=== PATIENT | female | born 1970 | race Caucasian/White ===

== ENCOUNTER 2018-02-22 21:02 | Outpatient (CLI) | payer SELFPAY | END 2018-02-23 06:55 | disposition home or self-care (01) | LOC: SLEEP 21:02 | PROVIDERS: ATTEND Family Medicine | DX: G47.10 Hypersomnia, unspecified (principal); G47.36 Sleep related hypoventilation in conditions classified elsewhere; R06.83 Snoring; G47.61 Periodic limb movement disorder; I10 Essential (primary) hypertension | CPT/HCPCS: 95811 ==

== ENCOUNTER 2018-06-11 14:20 | Outpatient (CLI) | payer OTHER ==
[~2018-06-11] VITALS: Ht 149.9 cm; Wt 67.1 kg
[2018-06-11] MEDS ORDERED: ESCI20TA PO (14:49)
[2018-06-11] MEDS ORDERED: MULT-884 PO (14:49)
[2018-06-11] MEDS ORDERED: LISI1TAB8 PO (14:49)
[2018-06-11] MEDS ORDERED: AMLO5TAB7 PO (14:49)
[2018-06-11] MEDS ORDERED: METO100T12 PO (14:49)
[2018-06-11] MEDS ORDERED: PRAM0.252 PO (14:49)
[2018-06-11] MEDS ORDERED: FERR160T6 PO (14:49)
== END 2018-06-11 14:50 | disposition home or self-care (01) ==
LOC: PREOP 14:20
PROVIDERS: ATTEND Surgery
DX: Z01.818 Encounter for other preprocedural examination (principal)

== ENCOUNTER 2018-06-12 09:55 | Day surgery (SDC) | payer OTHER ==
[~2018-06-12] VITALS: Ht 149.9 cm; Wt 67.1 kg
[~2018-06-12 09:55] MED LIST: AMLO5TAB7 PO; ESCI20TA PO; FERR160T6 PO; LISI1TAB8 PO; METO100T12 PO; MULT-884 PO; PRAM0.252 PO
[2018-06-12] MEDS ORDERED: LACTATED RINGERS 1,000 ML IV ONE (10:20)
[2018-06-12] MEDS ORDERED: LACTATED RINGERS 1,000 ML IV STA (10:26)
[2018-06-12] MEDS ORDERED: HURRICAINE EXT TUBE (BENZOCAINE) XX PRN (10:30)
[2018-06-12 10:42] VITALS: BP 112/95
[2018-06-12] MEDS ORDERED: proPOfol 200 MG/20 ML (DIPRIVAN) VIAL IV ONE (10:45)
[2018-06-12] MEDS ORDERED: MIDAZOLAM 2 MG/2 ML (VERSED) VIAL ONE (10:46)
--- NOTE | 2018-06-12 10:49 | Progress Note-Pre Operative ---
Pre-Operative Progress Note H&P Reviewed The H&P was reviewed, patient examined and no changes noted. Date Seen by Provider: Jun 12, 2018 Time Seen by Provider: 10:49 Date H&P Reviewed: Jun 12, 2018 Time H&P Reviewed: 10:49 Pre-Operative Diagnosis: change in bowel habits, llq abdominal pain LONDON PETERSON DO Jun 12, 2018 10:49
[2018-06-12] MEDS ORDERED: fentaNYL INJECTION 100 MCG/2 ML AMP ONE (11:06)
--- NOTE | 2018-06-12 11:23 | Progress Note-Post Operative ---
Post-Operative Progess Note Surgeon (s)/Miscellaneous Machine Operator (s) Surgeon LONDON PETERSON DO Miscellaneous Machine Operator: na Pre-Operative Diagnosis change in bowel habits, llq abdominal pain Post-Operative Diagnosis sigmoid polyp, diverticulosis Procedure & Operative Findings Date of Procedure 06/12/18 Procedure Performed/Findings colonoscopy with hot bx polypectomy Anesthesia Type per mda Estimated Blood Loss Estimated blood loss (mL): none Specimens/Packing Specimens Removed sigmoid polyp LONDON PETERSON DO Jun 12, 2018 11:23
--- NOTE | 2018-06-12 11:25 | Discharge Inst-Simple/Standard ---
Discharge Inst-Standard Patient Instructions/Follow Up Plan of Care/Instructions/FU: 2 weeks Pacheco Take citracil daily as instructions state. Activity as Tolerated: Yes Discharge Diet: Regular Diet LONDON PETERSON DO Jun 12, 2018 11:25
[2018-06-12 11:40] VITALS: BP 112/95
[2018-06-12 12:05] VITALS: BP 132/94
[2018-06-12 12:13] VITALS: BP 132/94
--- OUTSIDE RECORDS SUMMARY | 2018-06-12 13:42 | XMS REPORT ---
Author Author JEAN MARIE JUNIOR [facility] Address [address] [place] [address] Care Team Providers Care Hairspring Ii Inspector Name Role Phone SAULOCARLOSMAXIME JEAN MARIE Unavailable PROBLEMS Type Condition ICD9-CM Code [id number] Code Onset Dates Condition Status SNOMED Code Problem Moderate episode of recurrent major depressive disorder F33.1 Active 682174975 Problem Sleep disturbance G47.9 Active 18796136 Problem Essential hypertension I10 Active 70933596 Problem Severe sleep apnea G47.30 Active 93339506 Problem Restless leg syndrome G25.81 Active 85346300 Problem Tobacco abuse Z72.0 Active 752490308 Problem Chronic diarrhea K52.9 Active 011982431 Problem Environmental and seasonal allergies J30.89 Active 799176933 Problem Overweight (BMI 25.0-29.9) E66.3 Active 031846912 Problem Chronic GERD K21.9 Active 048178317 ALLERGIES No Known Allergies ENCOUNTERS Encounter Location Date Diagnosis [facility] [address] [facility] [id number] [place] [id number] Jun, [facility] [address] [facility] [id number] [place] [phone] May, [facility] [facility] [id number] [place] [id number] May, [facility] [address] [facility] [id number] [place] [id number] Apr, Essential hypertension I10 ; Restless leg syndrome G25.81 ; LLQ abdominal pain R10.32 ; Moderate episode of recurrent major depressive disorder F33.1 and Encounter for immunization Z23 [facility] [address] [facility] [facility] [id number] [place] [id number] Apr, Essential hypertension I10 [facility] RETA [address] [id number] [place] [address] Apr Essential hypertension I10 [facility] [place] [address] [id number] [place] [address] Mar, Women's annual routine gynecological examination Z01.419 [facility] [address] [facility] [id number] [place] [address] Mar, [facility] [place] [address] [id number] [place] [address] Feb, Women's annual routine gynecological examination Z01.419 ; Overweight ( BMI 25.0-29.9) E66.3 and Tobacco abuse Z72.0 [facility] [place] [id number] [place] [address] Jan, Essential hypertension I10 ; Chronic GERD K21.9 and Sleep disturbance G47.9 [facility] [address] [facility] [id number] [place] [address] Nov, Dental examination Z01.20 [facility] [place] [id number] [place] [id number] Oct, Essential hypertension I10 ; Sleep disturbance G47.9 and Moderate episode of recurrent major depressive disorder F33.1 [facility] [place] [address] [id number] [place] [address] Sep Essential hypertension I10 [facility] [address] [id number] [place] [address] Jul Screening breast examination Z12.31 [facility] [place] [id number] [place], [place] [id number] Jun, [facility] [place] [id number] [place] [address] Jun, [facility] [address] [facility] [id number][place] [address] Jun, Environmental and seasonal allergies J30.89 [facility] [place] [id number] [place] [address] Jun, Environmental and seasonal allergies J30.89 ; Chronic diarrhea K52.9 and Essential hypertension I10 [facility] [place] [address] [place] [id number] May, Acute non-recurrent sinusitis, unspecified location J01.90 ; Essential hypertension I10 ; Sleep disturbance G47.9 and Tobacco abuse Z72.0 [facility] [address] [id number] [place] [address] Apr Acute seasonal allergic rhinitis, unspecified trigger J30.2 [facility] Nanoleaf [address] [id number] [place] [address] Apr Acute nasopharyngitis J00 and Essential hypertension I10 [facility] FriendE [id number] [place] [address] Mar Essential hypertension I10 and Acute seasonal allergic rhinitis, unspecified trigger J30.2 [facility] EvocalizeE [id number] [place] [address] Jan Essential hypertension I10 ; Moderate episode of recurrent major depressive disorder F33.1 and Pain in right leg M79.604 [facility] Friend[facility] [id number] [place] [address] December Acute nasopharyngitis J00 IMMUNIZATIONS Vaccine Route Administration Date Status FLULAVAL QUAD 0.5ML (6 MO & UP) 2018 IM Intramuscular May 03, 2018 Administered SOCIAL HISTORY Never Assessed REASON FOR VISIT CHM- 3 month f/u Blood Pressure , Pt is concerned about bowel movements and multiple loose stools, has never had colonoscopy Johnie MARTINEZ PLAN OF CARE Activity Details Follow Up 4-6 weeks Reason:HTN, Restless Leg VITAL SIGNS Height 59 in 2018-05-03 Weight 150.0 lbs 2018-05-03 Heart Rate 68 bpm 2018-05-03 Respiratory Rate 18 2018-05-03 BMI 30.29 kg/m2 2018-05-03 Blood pressure systolic 160 mmHg 2018-05-03 Blood pressure diastolic 98 mmHg 2018-05-03 MEDICATIONS Medication Instructions Dosage Frequency Start Date End Date Duration Status Lexapro 20 mg Orally Once a day 0.5 tablet 24h Apr, 60 days Active Lisinopril 40 mg Orally Once a day 1 tablet 24h Apr, 30 day(s) Active Lisinopril-Hydrochlorothiazide 20-12.5 MG Orally Once a day in the morning 2 tablets Apr, 60 days Active Pramipexole Dihydrochloride 0.25 MG Orally Once a day 1 tablet before bedtime 24h Apr, 30 day(s) Active Esomeprazole Magnesium 20 mg Orally Once a day 1 capsule 24h Jan, 90 days Active Amlodipine Besylate 10 mg Orally Once a day 1 tablet 24h Apr, 30 day(s) Active Metoprolol Tartrate 100 mg Orally Twice a day 1 tablet with food 12h Jan Active RESULTS No Results PROCEDURES Procedure Date Ordered Result Body Site FLULAVAL QUAD 0.5ML (6 MO AND UP) 2017May 03, 2018 SINGLE IMMUNIZATION ADMIN May 03, 2018 COMPLETE CBC W/AUTO DIFF WBC May 03, 2018 COMPREHEN METABOLIC PANEL May 03, 2018 MICROALBUMIN, SEMIQUANT May 03, 2018 VENIPUNCT, ROUTINE* May 03, 2018 IRON BINDING TEST May 03, 2018 LIPID PANEL May 03, 2018 ASSAY OF FERRITIN May 03, 2018 ASSAY OF IRON May 03, 2018 INSTRUCTIONS MEDICATIONS ADMINISTERED No Known Medications MEDICAL (GENERAL) HISTORY Type Description Date Medical History hypertension Medical History seasonal allergies Medical History depression Medical History IBS Surgical History Breast implants Surgical History tubal ligation Hospitalization History child
--- OUTSIDE RECORDS SUMMARY | 2018-06-12 13:42 | XMS REPORT ---
Author Author JEAN MARIE JUNIOR [facility] Address [address] [place] [address] Care Team Providers Care Trim Mechanic Name Role Phone SAULOCARLOSMAXIME JEAN MARIE Unavailable PROBLEMS Type Condition ICD9-CM Code [id number] Code Onset Dates Condition Status SNOMED Code Problem Moderate episode of recurrent major depressive disorder F33.1 Active 421904039 Problem Sleep disturbance G47.9 Active 53402715 Problem Essential hypertension I10 Active 47541054 Problem Severe sleep apnea G47.30 Active 34257625 Problem Restless leg syndrome G25.81 Active 81012871 Problem Tobacco abuse Z72.0 Active 591704647 Problem Chronic diarrhea K52.9 Active 720787719 Problem Environmental and seasonal allergies J30.89 Active 951841234 Problem Overweight (BMI 25.0-29.9) E66.3 Active 447141204 Problem Chronic GERD K21.9 Active 716209419 ALLERGIES No Information ENCOUNTERS Encounter Location Date Diagnosis [facility] [address] [facility] [id number][place] [phone] Jun, [facility] [address] [facility] [id number][place] [phone] May, [facility] [facility] [id number] [place] [phone] May, [facility] [address] [facility] [id number][place] [id number] Apr, Essential hypertension I10 ; Restless leg syndrome G25.81 ; LLQ abdominal pain R10.32 ; Moderate episode of recurrent major depressive disorder F33.1 and Encounter for immunization Z23 [facility] [address] [facility] [id number][place] [id number] Apr, Essential hypertension I10 [facility] RETA [address] [id number] [place] [address] Apr Essential hypertension I10 [facility] [place] [address] [id number][place] [id number] Mar, Women's annual routine gynecological examination Z01.419 [facility] [address] [facility] [id number] [place] [phone] Mar, [facility] [place] [address] [id number], [place] [address] Feb, Women's annual routine gynecological examination Z01.419 ; Overweight ( BMI 25.0-29.9) E66.3 and Tobacco abuse Z72.0 [facility] [place] [id number], [place] [address] Jan, Essential hypertension I10 ; Chronic GERD K21.9 and Sleep disturbance G47.9 [facility] [address] [id number] [place] [id number] Nov, Dental examination Z01.20 [facility] [place] [id number], [place] [address] Oct, Essential hypertension I10 ; Sleep disturbance G47.9 and Moderate episode of recurrent major depressive disorder F33.1 [facility] [address] [id number] [place] [address] Sep Essential hypertension I10 [facility] [address] [id number] [place] [address] Jul Screening breast examination Z12.31 [facility] [place] [id number], [place] [id number] Jun, [facility] [place] [address] [id number], [place] [address] Jun, [facility] [address] [facility] [id number] [address] Jun, Environmental and seasonal allergies J30.89 [facility] [place] [id number], [place] [address] Jun, Environmental and seasonal allergies J30.89 ; Chronic diarrhea K52.9 and Essential hypertension I10 [facility] [place] [id number] [place] [id number] May, Acute non-recurrent sinusitis, unspecified location J01.90 ; Essential hypertension I10 ; Sleep disturbance G47.9 and Tobacco abuse Z72.0 [facility] Libboo [address] [id number] [place] [address] Apr Acute seasonal allergic rhinitis, unspecified trigger J30.2 [facility] [address] [id number] [place] [address] Apr Acute nasopharyngitis J00 and Essential hypertension I10 [facility] [address] [id number] [place] [address] Mar Essential hypertension I10 and Acute seasonal allergic rhinitis, unspecified trigger J30.2 [facility] [address] [id number] [place] [address] Jan Essential hypertension I10 ; Moderate episode of recurrent major depressive disorder F33.1 and Pain in right leg M79.604 [facility] [address] [id number] [place] [address] December Acute nasopharyngitis J00 IMMUNIZATIONS No Known Immunizations SOCIAL HISTORY Never Assessed REASON FOR VISIT lab letter PLAN OF CARE VITAL SIGNS MEDICATIONS Unknown Medications RESULTS No Results PROCEDURES No Known procedures INSTRUCTIONS MEDICATIONS ADMINISTERED No Known Medications MEDICAL (GENERAL) HISTORY Type Description Date Medical History hypertension Medical History seasonal allergies Medical History depression Medical History IBS Surgical History Breast implants Surgical History tubal ligation Hospitalization History child
--- OUTSIDE RECORDS SUMMARY | 2018-06-12 13:42 | XMS REPORT ---
Author Author JEAN MARIE JUNIOR [facility] Address [address] [place] [address] Care Team Providers Care Typists Supervisor Name Role Phone SAULOCARLOSMAXIME JEAN MARIE Unavailable PROBLEMS Type Condition ICD9-CM Code TIA91-AS Code Onset Dates Condition Status SNOMED Code Problem Moderate episode of recurrent major depressive disorder F33.1 Active 371327800 Problem Sleep disturbance G47.9 Active 54764121 Problem Essential hypertension I10 Active 37229089 Problem Severe sleep apnea G47.30 Active 25092730 Problem Restless leg syndrome G25.81 Active 92528188 Problem Tobacco abuse Z72.0 Active 542558851 Problem Chronic diarrhea K52.9 Active 743365118 Problem Environmental and seasonal allergies J30.89 Active 970964793 Problem Overweight (BMI 25.0-29.9) E66.3 Active 227471405 Problem Chronic GERD K21.9 Active 048984199 ALLERGIES No Information ENCOUNTERS Encounter Location Date Diagnosis [facility] [address] [facility] [id number], [place] [phone] Jun, [facility] [address] [facility] [id number], [place] [phone] May, [facility] [address] [facility] [id number], [place] [id number] May, [facility] [address] [facility] [id number], [place] [id number] Apr, Essential hypertension I10 ; Restless leg syndrome G25.81 ; LLQ abdominal pain R10.32 ; Moderate episode of recurrent major depressive disorder F33.1 and Encounter for immunization Z23 [facility] [address] [facility] [id number], [place] [phone] Apr, Essential hypertension I10 [facility] [address] [id number] [place] [address] Apr Essential hypertension I10 [facility] [place] [address] [id number], [place] [id number] Mar, Women's annual routine gynecological examination Z01.419 [facility] [address] [facility] [address] [id number], [place] [id number] Mar, [facility] [place] [address] [id number], [place] [address] Feb, Women's annual routine gynecological examination Z01.419 ; Overweight ( BMI 25.0-29.9) E66.3 and Tobacco abuse Z72.0 [facility] [place] [id number], [place] [address] Jan, Essential hypertension I10 ; Chronic GERD K21.9 and Sleep disturbance G47.9 [facility] [address] [facility] [address] [id number], [place] [id number] Nov, Dental examination Z01.20 [facility] [place] [id number], [place] [address] Oct, Essential hypertension I10 ; Sleep disturbance G47.9 and Moderate episode of recurrent major depressive disorder F33.1 [facility] [address] [id number] [place] [address] Sep Essential hypertension I10 [facility] [address] [id number] [place] [address] Jul Screening breast examination Z12.31 [facility] [place] [id number], [place] [id number] Jun, [facility] [place] [address] [id number], [place] [id number] Jun, [facility] [address] [facility] [id number], [place] [address] Jun, Environmental and seasonal allergies J30.89 [facility] [place] [id number], [place] [address] Jun, Environmental and seasonal allergies J30.89 ; Chronic diarrhea K52.9 and Essential hypertension I10 [facility] [place] [id number] [place] [address] May, Acute non-recurrent sinusitis, unspecified location J01.90 ; Essential hypertension I10 ; Sleep disturbance G47.9 and Tobacco abuse Z72.0 [facility] Curiyo [address] [id number] [place] [address] Apr Acute seasonal allergic rhinitis, unspecified trigger J30.2 [facility] [address] [id number] [place] [address] Apr Acute nasopharyngitis J00 and Essential hypertension I10 [facility] [address] [id number] [place] [address] Mar Essential hypertension I10 and Acute seasonal allergic rhinitis, unspecified trigger J30.2 [facility] [address] [id number] [place] [address] Jan Essential hypertension I10 ; Moderate episode of recurrent major depressive disorder F33.1 and Pain in right leg M79.604 [facility] Curiyo [address] [id number] [place] [address] December Acute nasopharyngitis J00 IMMUNIZATIONS No Known Immunizations SOCIAL HISTORY Never Assessed REASON FOR VISIT Colonoscopy Order PLAN OF CARE VITAL SIGNS MEDICATIONS Unknown Medications RESULTS No Results PROCEDURES No Known procedures INSTRUCTIONS MEDICATIONS ADMINISTERED No Known Medications MEDICAL (GENERAL) HISTORY Type Description Date Medical History hypertension Medical History seasonal allergies Medical History depression Medical History IBS Surgical History Breast implants Surgical History tubal ligation Hospitalization History child
--- OUTSIDE RECORDS SUMMARY | 2018-06-12 13:43 | XMS REPORT ---
Author Author JEAN MARIE JUNIOR [facility] Address [address] [place] [address] Care Team Providers Care Industrial Eng Name Role Phone SANDI JEAN MARIE Unavailable PROBLEMS Type Condition ICD9-CM Code MVG83-DM Code Onset Dates Condition Status SNOMED Code Problem Severe sleep apnea G47.30 Active 30720047 Problem Essential hypertension I10 Active 70860498 Problem Moderate episode of recurrent major depressive disorder F33.1 Active 741136898 Problem Tobacco abuse Z72.0 Active 602595580 Problem Overweight (BMI 25.0-29.9) E66.3 Active 768496284 Problem Environmental and seasonal allergies J30.89 Active 217025883 Problem Sleep disturbance G47.9 Active 99023240 Problem Chronic GERD K21.9 Active 508761210 Problem Chronic diarrhea K52.9 Active 093335257 ALLERGIES No Information ENCOUNTERS Encounter Location Date Diagnosis [facility] [id number] [place] [id number] Apr, [facility] [address] [facility] [id number][place] [phone] Apr, Essential hypertension I10 [address] [address] [id number] [place] [address] Apr Essential hypertension I10 [facility] [address] [facility] [id number], [place] [id number] Mar, Women's annual routine gynecological examination Z01.419 [facility] [address] [facility] [id number] [place] [address] Mar, [facility] [address] [facility] [id number], [place] [id number] Feb, Women's annual routine gynecological examination Z01.419 ; Overweight ( BMI 25.0-29.9) E66.3 and Tobacco abuse Z72.0 [facility] [address] [facility] [id number], [place] [id number] Jan, Essential hypertension I10 ; Chronic GERD K21.9 and Sleep disturbance G47.[address] [facility] [address] [id number] [place] [address] Nov, Dental examination Z01.20 [facility] [id number], [place] [id number] 15 Oct, 2017 Essential hypertension I10 ; Sleep disturbance G47.9 and Moderate episode of recurrent major depressive disorder F33.1 [facility] [address] [address] [id number] [place] [address] Sep Essential hypertension I10 [facility] [place] [address] [id number] [place] [address] Jul Screening breast examination Z12.[address]00565100[place], [place] [id number] Jun, [address]00565100[place], [place] [address] Jun, [facility] [address] [id number], [place] [address] Jun, Environmental and seasonal allergies J30.89 [address]00565100[place], [place] [address] Jun, Environmental and seasonal allergies J30.89 ; Chronic diarrhea K52.9 and Essential hypertension I10 [facility] [address]00565100[place], [place] [address] 05 May, 2017 Acute non-recurrent sinusitis, unspecified location J01.90 ; Essential hypertension I10 ; Sleep disturbance G47.9 and Tobacco abuse Z72.0 [facility] [address] [address] [id number] [place] [address] 28 Apr Acute seasonal allergic rhinitis, unspecified trigger J30.2 [facility] [place] [address] [id number] [place] [address] 14 Apr Acute nasopharyngitis J00 and Essential hypertension I10 [facility] [place] [address] [id number] [place] [address] Mar Essential hypertension I10 and Acute seasonal allergic rhinitis, unspecified trigger J30.2 [facility] [address] [id number] [place] [address] Jan Essential hypertension I10 ; Moderate episode of recurrent major depressive disorder F33.1 and Pain in right leg M79.604 [facility] [address] [id number] [place] [address] December Acute nasopharyngitis J00 IMMUNIZATIONS No Known Immunizations SOCIAL HISTORY Never Assessed REASON FOR VISIT updated history PLAN OF CARE VITAL SIGNS MEDICATIONS Unknown Medications RESULTS No Results PROCEDURES No Known procedures INSTRUCTIONS MEDICATIONS ADMINISTERED No Known Medications MEDICAL (GENERAL) HISTORY Type Description Date Medical History hypertension Medical History seasonal allergies Medical History depression Medical History IBS Surgical History Breast implants Surgical History tubal ligation Hospitalization History child
--- OUTSIDE RECORDS SUMMARY | 2018-06-12 13:43 | XMS REPORT ---
Author Author JEAN MARIE JUNIOR [facility] [place] Address [address] [place] [address] Care Team Providers Care Supervisor Mechanic Boilermaking Name Role Phone SANDI JEAN MARIE Unavailable PROBLEMS Type Condition ICD9-CM Code [id number] Code Onset Dates Condition Status SNOMED Code Problem Chronic GERD K21.9 Active 728431775 Problem Environmental and seasonal allergies J30.89 Active 779550778 Problem Essential hypertension I10 Active 87106818 Problem Moderate episode of recurrent major depressive disorder F33.1 Active 111659335 Problem Chronic diarrhea K52.9 Active 925458148 Problem Sleep disturbance G47.9 Active 98881512 ALLERGIES No Information ENCOUNTERS Encounter Location Date Diagnosis [facility] [address] [id number] [id number] Feb, [facility] [address] [facility] [id number][place] [id number] Feb, [facility] [address] [address] Jan, Essential hypertension I10 ; Chronic GERD K21.9 and Sleep disturbance G47.9 [facility] [address] [address] [id number], [place] [phone] Nov, Dental examination Z01.20 [facility] [place] [address] [id number][place] [id number] Oct, Essential hypertension I10 ; Sleep disturbance G47.9 and Moderate episode of recurrent major depressive disorder F33.1 [facility] [address] [id number] [place] [address] Sep Essential hypertension I10 [facility] [place] [address] [id number] [place] [address] Jul Screening breast examination Z12.31 [facility] [address] [id number] [place] [id number] Jun, [facility] [address] [facility] [id number][place] [id number] Jun, [facility] [place] [address] [facility] [id number] [place] [address] Jun, Environmental and seasonal allergies J30.89 [facility] [address] [facility] [id number][place] [address] Jun, Environmental and seasonal allergies J30.89 ; Chronic diarrhea K52.9 and Essential hypertension I10 [facility] [address] [facility] [id number][place] [id number] May, Acute non-recurrent sinusitis, unspecified location J01.90 ; Essential hypertension I10 ; Sleep disturbance G47.9 and Tobacco abuse Z72.0 [facility] [employer] [address] [id number] [place] [address] Apr Acute seasonal allergic rhinitis, unspecified trigger J30.2 [facility] [employer] [address] [id number] [place] [address] Apr Acute nasopharyngitis J00 and Essential hypertension I10 [facility] [employer] [address] [id number] [place] [address] Mar Essential hypertension I10 and Acute seasonal allergic rhinitis, unspecified trigger J30.2 [facility] [address] [id number] [place] [address] Jan Essential hypertension I10 ; Moderate episode of recurrent major depressive disorder F33.1 and Pain in right leg M79.604 [facility] [employer] [address] [id number] [place] [address] December Acute nasopharyngitis J00 IMMUNIZATIONS No Known Immunizations SOCIAL HISTORY Never Assessed REASON FOR VISIT Refill request PLAN OF CARE VITAL SIGNS MEDICATIONS Medication Instructions Dosage Frequency Start Date End Date Duration Status Lisinopril 20 mg Orally Once a day 1 tablet 24h Mar, 30 days Active RESULTS No Results PROCEDURES No Known procedures INSTRUCTIONS MEDICATIONS ADMINISTERED No Known Medications MEDICAL (GENERAL) HISTORY Type Description Date Medical History hypertension Medical History seasonal allergies Medical History depression Medical History IBS Surgical History Breast implants Surgical History tubal ligation Hospitalization History child
--- OUTSIDE RECORDS SUMMARY | 2018-06-12 13:43 | XMS REPORT ---
Author Author JEAN MARIE JUNIOR [facility] Address [address] [place] [address] Care Team Providers Care Mechanic Insulator Name Role Phone JEAN MARIE JUNIOR Unavailable PROBLEMS Type Condition ICD9-CM Code [id number] Code Onset Dates Condition Status SNOMED Code Problem Severe sleep apnea G47.30 Active 30137056 Problem Essential hypertension I10 Active 73677596 Problem Moderate episode of recurrent major depressive disorder F33.1 Active 815529541 Problem Tobacco abuse Z72.0 Active 408815559 Problem Overweight (BMI 25.0-29.9) E66.3 Active 182512894 Problem Environmental and seasonal allergies J30.89 Active 801825085 Problem Sleep disturbance G47.9 Active 56463390 Problem Chronic GERD K21.9 Active 096508214 Problem Chronic diarrhea K52.9 Active 121120689 ALLERGIES No Known Allergies ENCOUNTERS Encounter Location Date Diagnosis [facility] [id number] [place] [id number] Apr, [facility] [address] [facility] [id number] [place] [phone] Apr, Essential hypertension I10 [place] [address] [id number] [place] [address] Apr Essential hypertension I10 [facility] [address] [facility] [id number] [place] [id number] Mar, Women's annual routine gynecological examination Z01.419 [facility] [address] [facility] [address] [id number] [id number] Mar, [facility] [address] [facility] [id number] [place] [address] Feb, Women's annual routine gynecological examination Z01.419 ; Overweight ( BMI 25.0-29.9) E66.3 and Tobacco abuse Z72.0 [facility] [address] [facility] [id number] [place] [id number] Jan, Essential hypertension I10 ; Chronic GERD K21.9 and Sleep disturbance G47.[address] [facility] [address] [id number] [place] [phone] Nov, Dental examination Z01.20 [facility] [address]00565100[place] [id number] 15 Oct, 2017 Essential hypertension I10 ; Sleep disturbance G47.9 and Moderate episode of recurrent major depressive disorder F33.[address] [facility] M[place]FF[facility] [address] [id number] [place] [address] Sep Essential hypertension I10 [facility] [address] [id number] [place] [address] Jul Screening breast examination Z12.31 [address]00565100[place] [id number] Jun, [address]00565100[place] [id number] Jun, [facility] [address] [place] [id number] [address] Jun, Environmental and seasonal allergies J30.89 [address]00565100[place] [address] Jun, Environmental and seasonal allergies J30.89 ; Chronic diarrhea K52.9 and Essential hypertension I10 [address]00565100[place] [id number] 05 May, 2017 Acute non-recurrent sinusitis, unspecified location J01.90 ; Essential hypertension I10 ; Sleep disturbance G47.9 and Tobacco abuse Z72.[address] [facility] M[place]FFIE [address] [id number] [place] [address] 28 Apr Acute seasonal allergic rhinitis, unspecified trigger J30.2 [facility] M[facility]FF[facility] [address] [id number] [place] [address] 14 Apr Acute nasopharyngitis J00 and Essential hypertension I10 [facility] M[place]FF[place] [address] [id number] [place] [address] Mar Essential hypertension I10 and Acute seasonal allergic rhinitis, unspecified trigger J30.2 [facility] [address] [id number] [place] [address] Jan Essential hypertension I10 ; Moderate episode of recurrent major depressive disorder F33.1 and Pain in right leg M79.604 [facility] [address] [id number] [place] [address] December Acute nasopharyngitis J00 IMMUNIZATIONS No Known Immunizations SOCIAL HISTORY Never Assessed REASON FOR VISIT Well Woman Exam Jaime RN PLAN OF CARE Activity Details Follow Up 1 Year Reason: VITAL SIGNS Height 59 in 2018-02-27 Weight 147.6 lbs 2018-02-27 Temperature 97.4 degrees Fahrenheit 2018-02-27 Heart Rate 62 bpm 2018-02-27 Respiratory Rate 18 2018-02-27 BMI 29.81 kg/m2 2018-02-27 Blood pressure systolic 122 mmHg 2018-02-27 Blood pressure diastolic 68 mmHg 2018-02-27 MEDICATIONS Medication Instructions Dosage Frequency Start Date End Date Duration Status Dexedrine Not-Taking Enalapril Maleate 20 mg Orally Once a day 1 tablet 24h Jan, 90 days Active Lexapro 20 mg Orally Once a day 1/2 tablet 24h 180 days Active Esomeprazole Magnesium 20 mg Orally Once a day 1 capsule 24h Jan, 90 days Active Metoprolol Tartrate 100 mg Orally Twice a day 1 tablet with food 12h Jan 90 days Active RESULTS No Results PROCEDURES Procedure Date Ordered Result Body Site SPECIMEN HANDLING February 27, 2018 CULTURE, BACTERIA, OTHER February 27, 2018 TRICHOMONAS ASSAY W/OPTIC February 27, 2018 No Charge February 27, 2018 Bacterial Vaginosis In House February 27, 2018 INSTRUCTIONS MEDICATIONS ADMINISTERED No Known Medications MEDICAL (GENERAL) HISTORY Type Description Date Medical History hypertension Medical History seasonal allergies Medical History depression Medical History IBS Surgical History Breast implants Surgical History tubal ligation Hospitalization History child
--- OUTSIDE RECORDS SUMMARY | 2018-06-12 13:43 | XMS REPORT ---
Author Author JEAN MARIE JUNIOR [facility] Address [address] [place] [address] Care Team Providers Care Phone Engineer Name Role Phone SANDI JEAN MARIE Unavailable PROBLEMS Type Condition ICD9-CM Code [id number] Code Onset Dates Condition Status SNOMED Code Problem Severe sleep apnea G47.30 Active 83446130 Problem Essential hypertension I10 Active 78987479 Problem Moderate episode of recurrent major depressive disorder F33.1 Active 620380365 Problem Tobacco abuse Z72.0 Active 791125670 Problem Overweight (BMI 25.0-29.9) E66.3 Active 105927315 Problem Environmental and seasonal allergies J30.89 Active 707778358 Problem Sleep disturbance G47.9 Active 38883631 Problem Chronic GERD K21.9 Active 531353760 Problem Chronic diarrhea K52.9 Active 344870065 ALLERGIES No Information ENCOUNTERS Encounter Location Date Diagnosis [facility] [id number] [place] [phone] Apr, [facility] [address] [facility] [id number], [place] [id number] Apr, Essential hypertension I10 [place] [address] [id number] [place] [address] Apr Essential hypertension I10 [facility] [address] [facility] [id number], [place] [id number] Mar, Women's annual routine gynecological examination Z01.419 [facility] [place] [address] [facility] [id number] [place] [id number] Mar, [facility] [address] [facility] [id number], [place] [id number] Feb, Women's annual routine gynecological examination Z01.419 ; Overweight ( BMI 25.0-29.9) E66.3 and Tobacco abuse Z72.0 [facility] [address] [facility] [id number], [place] [id number] Jan, Essential hypertension I10 ; Chronic GERD K21.9 and Sleep disturbance G47.9 [facility] [address] [id number] [place] [id number] Nov, Dental examination Z01.20 [facility] [id number], [place] [id number] 15 Oct, 2017 Essential hypertension I10 ; Sleep disturbance G47.9 and Moderate episode of recurrent major depressive disorder F33.1 [facility] [address] [id number] [place] [address] Sep Essential hypertension I10 [facility] M[facility] [address] [id number] [place] [address] Jul Screening breast examination Z12.31 [address]00565100[place], [place] [id number] Jun, [address]00565100[place], [place] [id number] Jun, [facility] [address] [id number], [place] [address] Jun, Environmental and seasonal allergies J30.89 [address]65100[place], [place] [id number] Jun, Environmental and seasonal allergies J30.89 ; Chronic diarrhea K52.9 and Essential hypertension I10 [facility] [address]00565100[place], [place] [id number] 05 May, 2017 Acute non-recurrent sinusitis, unspecified location J01.90 ; Essential hypertension I10 ; Sleep disturbance G47.9 and Tobacco abuse Z72.0 [facility] [address] [id number] [place] [address] 28 Apr Acute seasonal allergic rhinitis, unspecified trigger J30.2 [facility] [address] [id number] [place] [address] 14 Apr Acute nasopharyngitis J00 and Essential hypertension I10 [facility] [address] [address] [id number] [place] [address] Mar Essential hypertension I10 and Acute seasonal allergic rhinitis, unspecified trigger J30.2 [facility] [address] [id number] [place] [address] Jan Essential hypertension I10 ; Moderate episode of recurrent major depressive disorder F33.1 and Pain in right leg M79.604 [facility] [address] [id number] [place] [address] December Acute nasopharyngitis J00 IMMUNIZATIONS No Known Immunizations SOCIAL HISTORY Never Assessed REASON FOR VISIT change in mammo order PLAN OF CARE Activity Details Pending Test Mammogram Dx, Bilateral VITAL SIGNS MEDICATIONS Unknown Medications RESULTS No Results PROCEDURES No Known procedures INSTRUCTIONS MEDICATIONS ADMINISTERED No Known Medications MEDICAL (GENERAL) HISTORY Type Description Date Medical History hypertension Medical History seasonal allergies Medical History depression Medical History IBS Surgical History Breast implants Surgical History tubal ligation Hospitalization History child
--- OUTSIDE RECORDS SUMMARY | 2018-06-12 13:43 | XMS REPORT ---
Author Author JEAN MARIE JUNIOR [facility] Address [address] [place] [address] Care Team Providers Care Tick Inspector Name Role Phone JEAN MARIE JUNIOR Unavailable PROBLEMS Type Condition ICD9-CM Code VPQ38-RQ Code Onset Dates Condition Status SNOMED Code Problem Moderate episode of recurrent major depressive disorder F33.1 Active 872744938 Problem Sleep disturbance G47.9 Active 53111594 Problem Essential hypertension I10 Active 55845312 Problem Women's annual routine gynecological examination Z01.419 Active 833247665 Problem Overweight (BMI 25.0-29.9) E66.3 Active 445990094 Problem Environmental and seasonal allergies J30.89 Active 671458067 Problem Chronic diarrhea K52.9 Active 125931114 Problem Tobacco abuse Z72.0 Active 281990984 Problem Chronic GERD K21.9 Active 338509708 ALLERGIES No Known Allergies ENCOUNTERS Encounter Location Date Diagnosis [address] [place] [id number] Mar, Women's annual routine gynecological examination Z01.[address] [id number], [place] [id number] Mar, [place] [id number] [place] [id number] Feb, Women's annual routine gynecological examination Z01.419 ; Overweight ( BMI 25.0-29.9) E66.3 and Tobacco abuse Z72.[id number] [place] [id number] Jan, Essential hypertension I10 ; Chronic GERD K21.9 and Sleep disturbance G47.9 [place] [address] [facility] [id number][place] [id number] Nov, Dental examination Z01.[address] [id number], [place] [id number] Oct, Essential hypertension I10 ; Sleep disturbance G47.9 and Moderate episode of recurrent major depressive disorder F33.1 [facility] MCDUFFIE [address] [id number] [place] [address] Sep Essential hypertension I10 [facility] MCDUFFIE [address] [id number] [place] [address] Jul Screening breast examination Z12.31 [facility] [id number], [place] [id number] Jun, [place] [id number] [id number] Jun, [facility] [address] [id number] [address] Jun, Environmental and seasonal allergies J30.89 [place] [id number] [id number] Jun, Environmental and seasonal allergies J30.89 ; Chronic diarrhea K52.9 and Essential hypertension I10 [facility] [address] [facility] [id number], [place] [id number] May, Acute non-recurrent sinusitis, unspecified location J01.90 ; Essential hypertension I10 ; Sleep disturbance G47.9 and Tobacco abuse Z72.0 [facility] MCDUFFIE [address] [id number] [place] [address] Apr Acute seasonal allergic rhinitis, unspecified trigger J30.2 [facility] [address] [id number] [place] [address] 14 Apr Acute nasopharyngitis J00 and Essential hypertension I10 [facility] [address] [id number] [place] [address] 18 Mar Essential hypertension I10 and Acute seasonal allergic rhinitis, unspecified trigger J30.2 [facility] [address] [id number] [place] [address] Jan Essential hypertension I10 ; Moderate episode of recurrent major depressive disorder F33.1 and Pain in right leg M79.604 [facility] [address] [id number] JUAN JOSÉ [place] [address] December Acute nasopharyngitis J00 IMMUNIZATIONS No Known Immunizations SOCIAL HISTORY Never Assessed REASON FOR VISIT Elevated Blood pressure. Stopped lisinopril, felt this wasn't working well so she started Losartan 50mg BID that was her moms script. , Has been having daily diarrhea, using probitoics [facility] PLAN OF CARE Activity Details Follow Up 4-6 weeks Reason: VITAL SIGNS Height 59 in 2018-01-30 Weight 141.8 lbs 2018-01-30 Temperature 98.3 degrees Fahrenheit 2018-01-30 Heart Rate 100 bpm 2018-01-30 Respiratory Rate 16 2018-01-30 BMI 28.64 kg/m2 2018-01-30 Blood pressure systolic 220 mmHg 2018-01-30 Blood pressure diastolic 120 mmHg 2018-01-30 MEDICATIONS Medication Instructions Dosage Frequency Start Date End Date Duration Status Enalapril Maleate 20 mg Orally Once a day 1 tablet 24h Jan, 90 days Active Lexapro 20 mg Orally Once a day 1/2 tablet 24h 180 days Active Esomeprazole Magnesium 20 mg Orally Once a day 1 capsule 24h Jan, 90 days Active Metoprolol Tartrate 100 mg Orally Twice a day 1 tablet with food 12h Jan 90 days Active Losartan Potassium 50 mg Orally twice a day 1 tablet 12h Active Dexedrine Not-Taking RESULTS No Results PROCEDURES No Known procedures INSTRUCTIONS MEDICATIONS ADMINISTERED No Known Medications MEDICAL (GENERAL) HISTORY Type Description Date Medical History hypertension Medical History seasonal allergies Medical History depression Medical History IBS Surgical History Breast implants Surgical History tubal ligation Hospitalization History child
--- OUTSIDE RECORDS SUMMARY | 2018-06-12 13:43 | XMS REPORT ---
Author Author JEAN MARIE JUNIOR [facility] Address [address] [place] [address] Care Team Providers Care Float Nurse Name Role Phone SANDI JEAN MARIE Unavailable PROBLEMS Type Condition ICD9-CM Code [id number] Code Onset Dates Condition Status SNOMED Code Problem Chronic GERD K21.9 Active 611143222 Problem Environmental and seasonal allergies J30.89 Active 126179876 Problem Essential hypertension I10 Active 67667215 Problem Moderate episode of recurrent major depressive disorder F33.1 Active 423470817 Problem Chronic diarrhea K52.9 Active 899340932 Problem Sleep disturbance G47.9 Active 53119873 ALLERGIES No Known Allergies ENCOUNTERS Encounter Location Date [facility] [address] [id number] [id number] Feb, [facility] [address] [facility] [id number], [place] [address] Feb, [address] [address] Jan, Essential hypertension I10 ; Chronic GERD K21.9 and Sleep disturbance G47.[address] [id number][place] [address] Nov, Dental examination Z01.20 [facility] [address] [id number][place] [address] Oct, Essential hypertension I10 ; Sleep disturbance G47.9 and Moderate episode of recurrent major depressive disorder F33.1 [facility] [place] [address] [id number] [place] [address] 28 Sep Essential hypertension I10 [facility] [address] [id number] [place] [address] Jul Screening breast examination Z12.31 [facility] [address] [facility] [id number] [place] [address] Jun, [facility] [address] [facility] [id number][place] [address] Jun, [facility] [address] [facility] [id number] [place] [address] Jun, Environmental and seasonal allergies J30.89 [facility] [address] [facility] [id number][place] [address] Jun, Environmental and seasonal allergies J30.89 ; Chronic diarrhea K52.9 and Essential hypertension I10 [facility] [address] [facility] [id number][place] [address] May, Acute non-recurrent sinusitis, unspecified location J01.90 ; Essential hypertension I10 ; Sleep disturbance G47.9 and Tobacco abuse Z72.0 [facility] [employer] [address] [id number] [place] [address] Apr Acute seasonal allergic rhinitis, unspecified trigger J30.2 [facility] [address] [id number] [place] [address] Apr Acute nasopharyngitis J00 and Essential hypertension I10 [facility] MCDUFFIE [address] [id number] [place] [address] Mar Essential hypertension I10 and Acute seasonal allergic rhinitis, unspecified trigger J30.2 [facility] M[place]FF[place] [address] [id number] [place] [address] Jan Essential hypertension I10 ; Moderate episode of recurrent major depressive disorder F33.1 and Pain in right leg M79.604 [facility] [employer] [address] [id number] [place] [address] December Acute nasopharyngitis J00 IMMUNIZATIONS No Known Immunizations SOCIAL HISTORY Never Assessed REASON FOR VISIT Establish Care, needs refill on Lisinopril, sleep study results from May, very sleepy in the morning and wondering if thyroid is off--NINA murillo PLAN OF CARE Activity Details Follow Up 6 Months Reason: VITAL SIGNS Height 59 in 2017-10-19 Weight 141 lbs 2017-10-19 Temperature 98.5 degrees Fahrenheit 2017-10-19 Heart Rate 91 bpm 2017-10-19 Respiratory Rate 16 2017-10-19 BMI 28.48 kg/m2 2017-10-19 Blood pressure systolic 138 mmHg 2017-10-19 Blood pressure diastolic 84 mmHg 2017-10-19 MEDICATIONS Medication Instructions Dosage Frequency Start Date End Date Duration Status Lexapro 20 mg Orally Once a day 1/2 tablet 24h 180 days Active Cetirizine-Pseudoephedrine ER 5-120 MG TAKE 1 TABLET BY MOUTH TWICE DAILY 14 Not-Taking Lisinopril 20 mg Orally Once a day 1 tablet 24h 18 Mar, 2017 90 days Active RESULTS No Results PROCEDURES No Known procedures INSTRUCTIONS MEDICATIONS ADMINISTERED No Known Medications MEDICAL (GENERAL) HISTORY Type Description Date Medical History hypertension Medical History seasonal allergies Medical History depression Medical History IBS Surgical History Breast implants Surgical History tubal ligation Hospitalization History child
--- OUTSIDE RECORDS SUMMARY | 2018-06-12 13:43 | XMS REPORT ---
Author Author JEAN MARIE JUNIOR [facility] Address [address] [place] [address] Care Team Providers Care Deburrer Strip Name Role Phone SAULOCARLOSMAXIME JEAN MARIE Unavailable PROBLEMS Type Condition ICD9-CM Code AIS20-BG Code Onset Dates Condition Status SNOMED Code Problem Moderate episode of recurrent major depressive disorder F33.1 Active 737950653 Problem Sleep disturbance G47.9 Active 93728662 Problem Essential hypertension I10 Active 26300456 Problem Severe sleep apnea G47.30 Active 08664204 Problem Restless leg syndrome G25.81 Active 37972298 Problem Tobacco abuse Z72.0 Active 075627070 Problem Chronic diarrhea K52.9 Active 661272147 Problem Environmental and seasonal allergies J30.89 Active 267291503 Problem Overweight (BMI 25.0-29.9) E66.3 Active 344222257 Problem Chronic GERD K21.9 Active 730164856 ALLERGIES No Information ENCOUNTERS Encounter Location Date Diagnosis [facility] [address] [facility] [id number] [place] [phone] Jun, [facility] [address] [facility] [id number] [place] [address] Apr, Essential hypertension I10 ; Restless leg syndrome G25.81 ; LLQ abdominal pain R10.32 ; Moderate episode of recurrent major depressive disorder F33.1 and Encounter for immunization Z23 [facility] [address] [facility] [id number] [place] [address] Apr, Essential hypertension I10 [facility] [address] [id number] [place] [address] Apr Essential hypertension I10 [facility] [address] [facility] [id number] [place] [address] Mar, Women's annual routine gynecological examination Z01.419 [facility] KAROL [address] [id number], [place] [address] Mar, [facility] [place] [address] [id number] [place] [address] Feb, Women's annual routine gynecological examination Z01.419 ; Overweight ( BMI 25.0-29.9) E66.3 and Tobacco abuse Z72.0 [facility] [place] [address]65100[place] [address] Jan, Essential hypertension I10 ; Chronic GERD K21.9 and Sleep disturbance G47.9 [facility] [place] [address] [id number][place] [address] Nov, Dental examination Z01.20 [facility] [address] [place] [id number] 15 Oct, 2017 Essential hypertension I10 ; Sleep disturbance G47.9 and Moderate episode of recurrent major depressive disorder F33.1 [facility] [address]IE [address] [id number] [place] [address] Sep Essential hypertension I10 [facility] [place] [address] [id number] [place] [address] Jul Screening breast examination Z12.31 [facility] [address] [place] [id number] Jun, [facility] [address]100[place] [address] Jun, [facility] [address] [facility] [id number], [place] [address] Jun, Environmental and seasonal allergies J30.89 [facility] [address] [id number] [id number] 02 Jun, 2017 Environmental and seasonal allergies J30.89 ; Chronic diarrhea K52.9 and Essential hypertension I10 [facility] [address] [id number] [address] 05 May, 2017 Acute non-recurrent sinusitis, unspecified location J01.90 ; Essential hypertension I10 ; Sleep disturbance G47.9 and Tobacco abuse Z72.0 [facility] [address] [id number] [place] [address] Apr Acute seasonal allergic rhinitis, unspecified trigger J30.2 [facility] [employer] [address] [id number] [place] [address] 14 Apr Acute nasopharyngitis J00 and Essential hypertension I10 [facility] [employer] [address] [id number] [place] [address] Mar Essential hypertension I10 and Acute seasonal allergic rhinitis, unspecified trigger J30.2 [facility] [employer] [address] [id number] [place] [address] Jan Essential hypertension I10 ; Moderate episode of recurrent major depressive disorder F33.1 and Pain in right leg M79.604 [facility] [employer] [address] [id number] [place] [address] December Acute nasopharyngitis J00 IMMUNIZATIONS No Known Immunizations SOCIAL HISTORY Never Assessed REASON FOR VISIT Requests return call PLAN OF CARE VITAL SIGNS MEDICATIONS Medication Instructions Dosage Frequency Start Date End Date Duration Status Lisinopril 40 mg Orally Once a day 1 tablet 24h Apr, 30 day(s) Active RESULTS No Results PROCEDURES No Known procedures INSTRUCTIONS MEDICATIONS ADMINISTERED No Known Medications MEDICAL (GENERAL) HISTORY Type Description Date Medical History hypertension Medical History seasonal allergies Medical History depression Medical History IBS Surgical History Breast implants Surgical History tubal ligation Hospitalization History child
--- OUTSIDE RECORDS SUMMARY | 2018-06-12 13:43 | XMS REPORT ---
Author Author JEAN MARIE JUNIOR [facility] Address [address] [place] [address] Care Team Providers Care Overhead Worker Name Role Phone SANDI JEAN MARIE Unavailable PROBLEMS Type Condition ICD9-CM Code BRP23-QL Code Onset Dates Condition Status SNOMED Code Problem Severe sleep apnea G47.30 Active 17979038 Problem Essential hypertension I10 Active 99855239 Problem Moderate episode of recurrent major depressive disorder F33.1 Active 143160813 Problem Tobacco abuse Z72.0 Active 342252622 Problem Overweight (BMI 25.0-29.9) E66.3 Active 912579201 Problem Environmental and seasonal allergies J30.89 Active 924927734 Problem Sleep disturbance G47.9 Active 40813285 Problem Chronic GERD K21.9 Active 992518924 Problem Chronic diarrhea K52.9 Active 891871997 ALLERGIES No Information ENCOUNTERS Encounter Location Date Diagnosis [facility] [id number], [place] [id number] Apr, [facility] [address] [facility] [id number][place] [address] Apr, Essential hypertension I10 [address] [id number] [place] [address] Apr Essential hypertension I10 [facility] [address] [facility] [id number], [place] [address] Mar, Women's annual routine gynecological examination Z01.419 [facility] [address] [facility] [id number][place] [address] Mar, [facility] [address] [facility] [id number], [place] [address] Feb, Women's annual routine gynecological examination Z01.419 ; Overweight ( BMI 25.0-29.9) E66.3 and Tobacco abuse Z72.0 [facility] [address] [facility] [id number], [place] [address] Jan, Essential hypertension I10 ; Chronic GERD K21.9 and Sleep disturbance G47.9 [facility] [address] [id number] [place] [address] Nov, Dental examination Z01.20 [facility] [place] [id number], [place] [id number] 15 Oct, 2017 Essential hypertension I10 ; Sleep disturbance G47.9 and Moderate episode of recurrent major depressive disorder F33.1 [facility] [place] [address] [id number] [place] [address] Sep Essential hypertension I10 [facility] [place] [id number] [place] [address] Jul Screening breast examination Z12.31 [address]00565100[place], [place] [address] Jun, [address]100[place], [place] [address] Jun, [facility] [address] [id number], [place] [address] Jun, Environmental and seasonal allergies J30.89 [address]100[place] [address] Jun, Environmental and seasonal allergies J30.89 ; Chronic diarrhea K52.9 and Essential hypertension I10 [facility] [address]00565100[place], [place] [address] 05 May, 2017 Acute non-recurrent sinusitis, unspecified location J01.90 ; Essential hypertension I10 ; Sleep disturbance G47.9 and Tobacco abuse Z72.0 [facility] [address] [id number] [place] [address] 28 Apr Acute seasonal allergic rhinitis, unspecified trigger J30.2 [facility] [place] [id number] [place] [address] 14 Apr Acute nasopharyngitis J00 and Essential hypertension I10 [facility] [address] [id number] [place] [address] Mar Essential hypertension I10 and Acute seasonal allergic rhinitis, unspecified trigger J30.2 [facility] [address] [id number] [place] [address] Jan Essential hypertension I10 ; Moderate episode of recurrent major depressive disorder F33.1 and Pain in right leg M79.604 [facility] [address] [id number] [place] [address] December Acute nasopharyngitis J00 IMMUNIZATIONS No Known Immunizations SOCIAL HISTORY Never Assessed REASON FOR VISIT Medication refill request PLAN OF CARE VITAL SIGNS MEDICATIONS Medication Instructions Dosage Frequency Start Date End Date Duration Status Enalapril Maleate 20 mg Orally Once a day 1 tablet 24h Jan, 30 days Active Metoprolol Tartrate 100 mg Orally Twice a day 1 tablet with food 12h Jan 30 days Active RESULTS No Results PROCEDURES No Known procedures INSTRUCTIONS MEDICATIONS ADMINISTERED No Known Medications MEDICAL (GENERAL) HISTORY Type Description Date Medical History hypertension Medical History seasonal allergies Medical History depression Medical History IBS Surgical History Breast implants Surgical History tubal ligation Hospitalization History child
--- OUTSIDE RECORDS SUMMARY | 2018-06-12 13:43 | XMS REPORT ---
Author Author ZACKARY CHAUHAN [facility] Address [address] [place] [address] Care Team Providers Care Lime Sludge Kiln Operator Name Role Phone TIEN ZACKARY Unavailable PROBLEMS Type Condition ICD9-CM Code [id number] Code Onset Dates Condition Status SNOMED Code Problem Essential hypertension I10 Active 93759830 Problem Moderate episode of recurrent major depressive disorder F33.1 Active 942663523 Problem Tobacco abuse Z72.0 Active 203175114 Problem Overweight (BMI 25.0-29.9) E66.3 Active 259633014 Problem Environmental and seasonal allergies J30.89 Active 563365276 Problem Sleep disturbance G47.9 Active 74685408 Problem Chronic GERD K21.9 Active 021085416 Problem Chronic diarrhea K52.9 Active 445755408 ALLERGIES No Known Allergies ENCOUNTERS Encounter Location Date Diagnosis [facility] [address] [facility] [id number], [place] [id number] Mar, [address] [id number], [place] [address] Feb, Women's annual routine gynecological examination Z01.419 ; Overweight ( BMI 25.0-29.9) E66.3 and Tobacco abuse Z72.[address] [id number], [place] [address] Jan, Essential hypertension I10 ; Chronic GERD K21.9 and Sleep disturbance G47.9 [address] [facility] [id number], [place] [address] Nov, Dental examination Z01.[address] [id number], [place] [address] Oct, Essential hypertension I10 ; Sleep disturbance G47.9 and Moderate episode of recurrent major depressive disorder F33.[address] [facility] [address] [id number] [place] [address] Sep Essential hypertension I10 [facility] [address] [id number] [place] [address] Jul Screening breast examination Z12.31 [facility] [address] [id number], [place] [id number] Jun, [facility] [address] [id number], [place] [address] Jun, [facility] [address] [id number] [address] Jun, Environmental and seasonal allergies J30.89 [id number], [place] [address] Jun, Environmental and seasonal allergies J30.89 ; Chronic diarrhea K52.9 and Essential hypertension I10 [facility] [address] [id number], [place] [address] May, Acute non-recurrent sinusitis, unspecified location J01.90 ; Essential hypertension I10 ; Sleep disturbance G47.9 and Tobacco abuse Z72.[address] [facility] MCDUFFIE [address] [id number] [place] [address] Apr Acute seasonal allergic rhinitis, unspecified trigger J30.[address] [facility] RETA [address] [id number] [place] [address] 14 Apr Acute nasopharyngitis J00 and Essential hypertension I10 [facility] MCDUFFIE [address] [id number] [place] [address] Mar Essential hypertension I10 and Acute seasonal allergic rhinitis, unspecified trigger J30.[address] [facility] MCDUFFIE [employer] [address] [id number] [place] [address] Jan Essential hypertension I10 ; Moderate episode of recurrent major depressive disorder F33.1 and Pain in right leg M79.[address] [facility] MCDUFFIE [address] [id number] [place] [address] December Acute nasopharyngitis J00 IMMUNIZATIONS No Known Immunizations SOCIAL HISTORY Never Assessed REASON FOR VISIT toothache PLAN OF CARE Activity Details Follow Up 1 Week Reason:TE #14 VITAL SIGNS Height 59 in 2017-11-27 Blood pressure systolic 122 mmHg 2017-11-27 Blood pressure diastolic 84 mmHg 2017-11-27 MEDICATIONS Medication Instructions Dosage Frequency Start Date End Date Duration Status Lisinopril 20 mg Orally Once a day 1 tablet 24h Mar, 90 days Active Cetirizine-Pseudoephedrine ER 5-120 MG TAKE 1 TABLET BY MOUTH TWICE DAILY 14 Not-Taking Amoxicillin 500 MG Orally 2 STAT every 8 hrs 1 capsule Nov, December, 10 day(s) Active Lexapro 20 mg Orally Once a day 1/2 tablet 24h 180 days Active Dexedrine Active RESULTS No Results PROCEDURES Procedure Date Ordered Result Body Site LTD ORAL EVALUATION - PROBLEM FOCUS November 27, 2017 INTRAORL-PERIAPICAL 1 FILM 13246 November 27, 2017 BITEWING - SINGLE FILM November 27, 2017 INTRAORL-PERIAPICAL EA ADD FILM November 27, 2017 INSTRUCTIONS MEDICATIONS ADMINISTERED No Known Medications MEDICAL (GENERAL) HISTORY Type Description Date Medical History hypertension Medical History seasonal allergies Medical History depression Medical History IBS Surgical History Breast implants Surgical History tubal ligation Hospitalization History child
--- OUTSIDE RECORDS SUMMARY | 2018-06-12 13:44 | XMS REPORT ---
Author Author SANDIDUSTYT [facility] Address [address] [place] [address] Care Team Providers Care Director Hematology Name Role Phone JEAN MARIE JUNIOR Unavailable PROBLEMS Type Condition ICD9-CM Code [id number] Code Onset Dates Condition Status SNOMED Code Problem Environmental and seasonal allergies J30.89 Active 396522747 Problem Chronic diarrhea K52.9 Active 546691429 Problem Moderate episode of recurrent major depressive disorder F33.1 Active 784175910 Problem Sleep disturbance G47.9 Active 27570285 Problem Essential hypertension I10 Active 91742805 ALLERGIES No Known Allergies ENCOUNTERS Encounter Location Date Diagnosis [facility] Gisel[facility] [id number][place] [id number] Feb, [address] [id number], [place] [address] Nov, Dental examination Z01.20 [address]100[place], [place] [address] Oct, Essential hypertension I10 ; Sleep disturbance G47.9 and Moderate episode of recurrent major depressive disorder F33.1 [facility] [address] [id number] [place] [address] Sep Essential hypertension I10 [facility] [address] [id number] [place] [address] Jul Screening breast examination Z12.31 [address] [id number], [place] [address] Jun, [address] [place] [id number] Jun, [facility] [address] [facility] [id number] [address] Jun, Environmental and seasonal allergies J30.89 [facility] [address] [facility] [id number] [place] [address] Jun, Environmental and seasonal allergies J30.89 ; Chronic diarrhea K52.9 and Essential hypertension I10 [facility] [address] [facility] [id number] [place] [address] May, Acute non-recurrent sinusitis, unspecified location J01.90 ; Essential hypertension I10 ; Sleep disturbance G47.9 and Tobacco abuse Z72.[address] [facility] [address] [id number] [place] [address] Apr Acute seasonal allergic rhinitis, unspecified trigger J30.[address] [facility] [address] [id number] [place] [address] Apr Acute nasopharyngitis J00 and Essential hypertension I10 [facility] [address] [id number] [place] [address] Mar Essential hypertension I10 and Acute seasonal allergic rhinitis, unspecified trigger J30.2 [facility] [address] [id number] [place] [address] Jan Essential hypertension I10 ; Moderate episode of recurrent major depressive disorder F33.1 and Pain in right leg M79.604 [facility] [address] [id number] [place] [address] December Acute nasopharyngitis J00 IMMUNIZATIONS No Known Immunizations SOCIAL HISTORY Never Assessed REASON FOR VISIT EDW breast exam-Jorge Alberto butler PLAN OF CARE Activity Details Follow Up 1 Year Reason: Pending Test Mammogram, Bilateral Screening VITAL SIGNS Height 59 in 2017-07-18 Weight 131.2 lbs 2017-07-18 Temperature 98.2 degrees Fahrenheit 2017-07-18 Heart Rate 84 bpm 2017-07-18 Respiratory Rate 18 2017-07-18 BMI 26.50 kg/m2 2017-07-18 Blood pressure systolic 138 mmHg 2017-07-18 Blood pressure diastolic 82 mmHg 2017-07-18 MEDICATIONS Medication Instructions Dosage Frequency Start Date End Date Duration Status Lisinopril 20 mg Orally Once a day 1 tablet 24h Mar, 90 days Active Cetirizine-Pseudoephedrine ER 5-120 MG TAKE 1 TABLET BY MOUTH TWICE DAILY 14 Active Lexapro 10 mg Orally Once a day 1 tablet 24h 30 Active RESULTS No Results PROCEDURES No Known procedures INSTRUCTIONS MEDICATIONS ADMINISTERED No Known Medications MEDICAL (GENERAL) HISTORY Type Description Date Medical History hypertension Medical History seasonal allergies Medical History depression Medical History IBS Surgical History Breast implants Surgical History tubal ligation Hospitalization History child
--- OUTSIDE RECORDS SUMMARY | 2018-06-12 13:44 | XMS REPORT ---
Author Author SANDIDUSTYT [facility] Address [address] [place] [address] Care Team Providers Care Director Heart Name Role Phone JEAN MARIE JUNIOR Unavailable PROBLEMS Type Condition ICD9-CM Code DUR93-VA Code Onset Dates Condition Status SNOMED Code Problem Environmental and seasonal allergies J30.89 Active 295051826 Problem Chronic diarrhea K52.9 Active 949156756 Problem Moderate episode of recurrent major depressive disorder F33.1 Active 128816116 Problem Sleep disturbance G47.9 Active 97673439 Problem Essential hypertension I10 Active 29780943 ALLERGIES No Information ENCOUNTERS Encounter Location Date Diagnosis [facility] [address] [facility] [id number][place] [id number] Jan, [place] [address] [facility] [id number][place] [id number] Nov, Dental examination Z01.[address] [place] [id number] Oct, Essential hypertension I10 ; Sleep disturbance G47.9 and Moderate episode of recurrent major depressive disorder F33.1 [facility] [address] [id number] [place] [address] Sep Essential hypertension I10 [facility] [address] [id number] [place] [address] Jul Screening breast examination Z12.[id number] [place] [id number] Jun, [place] [id number] [place] [id number] Jun, [facility] [address] [facility] [id number], [place] [address] Nov, 2017 Environmental and seasonal allergies J30.89 [facility] [address] [facility] [id number] [place] [phone] Jun, Environmental and seasonal allergies J30.89 ; Chronic diarrhea K52.9 and Essential hypertension I10 [facility] [address] [facility] [id number] [place] [phone] May, Acute non-recurrent sinusitis, unspecified location J01.90 ; Essential hypertension I10 ; Sleep disturbance G47.9 and Tobacco abuse Z72.0 [facility] [address] [id number] [place] [address] Apr Acute seasonal allergic rhinitis, unspecified trigger J30.2 [facility] [address] [id number] [place] [address] 14 Apr Acute nasopharyngitis J00 and Essential hypertension I10 [facility] [address] [id number] [place] [address] Mar Essential hypertension I10 and Acute seasonal allergic rhinitis, unspecified trigger J30.2 [facility] [address] [id number] [place] [address] Jan Essential hypertension I10 ; Moderate episode of recurrent major depressive disorder F33.1 and Pain in right leg M79.604 [facility] [address] [id number] [place] [address] December Acute nasopharyngitis J00 IMMUNIZATIONS No Known Immunizations SOCIAL HISTORY Never Assessed REASON FOR VISIT Waiting for call back PLAN OF CARE VITAL SIGNS MEDICATIONS Medication Instructions Dosage Frequency Start Date End Date Duration Status Cetirizine-Pseudoephedrine ER 5-120 MG TAKE 1 TABLET BY MOUTH TWICE DAILY 14 Active RESULTS No Results PROCEDURES No Known procedures INSTRUCTIONS MEDICATIONS ADMINISTERED No Known Medications MEDICAL (GENERAL) HISTORY Type Description Date Medical History hypertension Medical History seasonal allergies Medical History depression Medical History IBS Surgical History Breast implants Surgical History tubal ligation Hospitalization History child
--- OUTSIDE RECORDS SUMMARY | 2018-06-12 13:44 | XMS REPORT ---
Author Author LASHAWN KC [facility] Address [address] [place] [address] Care Team Providers Care Service Station Operator Name Role Phone LASHAWN KC Unavailable PROBLEMS Type Condition ICD9-CM Code HLF48-DB Code Onset Dates Condition Status SNOMED Code Problem Environmental and seasonal allergies J30.89 Active 550469789 Problem Chronic diarrhea K52.9 Active 102668061 Problem Moderate episode of recurrent major depressive disorder F33.1 Active 137431711 Problem Sleep disturbance G47.9 Active 72767191 Problem Essential hypertension I10 Active 08240835 ALLERGIES No Known Allergies SOCIAL HISTORY Never Assessed PLAN OF CARE Activity Details Follow Up prn Reason: VITAL SIGNS Height 59 in 2016-12-29 Weight 122.5 lbs 2016-12-29 Temperature 97.8 degrees Fahrenheit 2016-12-29 Heart Rate 86 bpm 2016-12-29 Respiratory Rate 20 2016-12-29 BMI 24.74 kg/m2 2016-12-29 Blood pressure systolic 136 mmHg 2016-12-29 Blood pressure diastolic 84 mmHg 2016-12-29 MEDICATIONS Medication Instructions Dosage Frequency Start Date End Date Duration Status Celexa 20 mg Orally Once a day 1 tablet 24h 14 days Active Zyrtec Allergy 10 MG Orally Once a day 1 tablet 24h Active PredniSONE 20 mg Orally Once a day 2 tablets 24h December, December, 05 days Active Metoprolol Succinate ER 100 mg Orally Once a day 1 tablet 24h 14 days Active RESULTS No Results PROCEDURES No Known procedures IMMUNIZATIONS No Known Immunizations MEDICAL (GENERAL) HISTORY Type Description Date Medical History hypertension Medical History seasonal allergies Medical History depression Medical History IBS Surgical History Breast implants Surgical History tubal ligation Hospitalization History child
--- OUTSIDE RECORDS SUMMARY | 2018-06-12 13:44 | XMS REPORT ---
Author Author SANDIDUSTYT [facility] Address [address] [place] [address] Care Team Providers Care Vmware Engineer Name Role Phone JEAN MARIE JUNIOR Unavailable PROBLEMS Type Condition ICD9-CM Code AHJ10-LB Code Onset Dates Condition Status SNOMED Code Problem Environmental and seasonal allergies J30.89 Active 331356799 Problem Chronic diarrhea K52.9 Active 680598312 Problem Moderate episode of recurrent major depressive disorder F33.1 Active 911183768 Problem Sleep disturbance G47.9 Active 41043819 Problem Essential hypertension I10 Active 26089461 ALLERGIES No Information ENCOUNTERS Encounter Location Date Diagnosis [facility] [address] [facility] [id number][place] [phone] Jan, [place] [address] [facility] [id number], [place] [phone] Nov, Dental examination Z01.[address] [place] [id number] Oct, Essential hypertension I10 ; Sleep disturbance G47.9 and Moderate episode of recurrent major depressive disorder F33.1 [facility] [address] [id number] [place] [address] Sep Essential hypertension I10 [facility] [address] [id number] [place] [address] Jul Screening breast examination Z12.[id number] [place] [id number] Jun, [place] [id number] [place] [phone] Jun, [facility] [address] [place] [id number] [address] Nov, 2017 Environmental and seasonal allergies J30.89 [facility] [address] [facility] [id number] [place] [phone] Jun, Environmental and seasonal allergies J30.89 ; Chronic diarrhea K52.9 and Essential hypertension I10 [facility] [address] [facility] [id number] [place] [phone] May, Acute non-recurrent sinusitis, unspecified location J01.90 ; Essential hypertension I10 ; Sleep disturbance G47.9 and Tobacco abuse Z72.0 [facility] [address] [id number] [place] [address] Apr Acute seasonal allergic rhinitis, unspecified trigger J30.2 [facility] [address] [id number] [place] [address] 14 Apr Acute nasopharyngitis J00 and Essential hypertension I10 [facility] [address] [id number] [place] [address] Mar Essential hypertension I10 and Acute seasonal allergic rhinitis, unspecified trigger J30.2 [facility] [address] [id number] [place] [address] Jan Essential hypertension I10 ; Moderate episode of recurrent major depressive disorder F33.1 and Pain in right leg M79.604 [facility] [address] [id number] [place] [address] December Acute nasopharyngitis J00 IMMUNIZATIONS No Known Immunizations SOCIAL HISTORY Never Assessed REASON FOR VISIT medication resend PLAN OF CARE VITAL SIGNS MEDICATIONS Medication Instructions Dosage Frequency Start Date End Date Duration Status Cetirizine-Pseudoephedrine ER 5-120 MG Orally Twice a day 1 tablet 12h Jun, 30 day(s) Active RESULTS No Results PROCEDURES No Known procedures INSTRUCTIONS MEDICATIONS ADMINISTERED No Known Medications MEDICAL (GENERAL) HISTORY Type Description Date Medical History hypertension Medical History seasonal allergies Medical History depression Medical History IBS Surgical History Breast implants Surgical History tubal ligation Hospitalization History child
--- OUTSIDE RECORDS SUMMARY | 2018-06-12 13:44 | XMS REPORT ---
Author Author [facility] Address [address] [place] [address] Care Team Providers Care Piece Dyeing Machine Tender Name Role Phone LASHAWN KC Unavailable PROBLEMS Type Condition ICD9-CM Code FCV35-JN Code Onset Dates Condition Status SNOMED Code Problem Environmental and seasonal allergies J30.89 Active 442290774 Problem Chronic diarrhea K52.9 Active 524978860 Problem Moderate episode of recurrent major depressive disorder F33.1 Active 862904329 Problem Sleep disturbance G47.9 Active 92188003 Problem Essential hypertension I10 Active 91830898 ALLERGIES No Known Allergies ENCOUNTERS Encounter Location Date Diagnosis [facility] KAROL Batres0 [facility] [id number] [id number] Jan, [facility] [address] [address] [place] [address] [id number], [place] [phone] Nov, Dental examination Z01.20 [facility] [id number], [place] [id number] Oct, Essential hypertension I10 ; Sleep disturbance G47.9 and Moderate episode of recurrent major depressive disorder F33.1 [facility] [address] [id number] [place] [address] Sep Essential hypertension I10 [facility] [address] [id number] [place] [address] Jul Screening breast examination Z12.31 [facility] [address] [facility] [id number], [place] [id number] Jun, [facility] [address] [place] [id number][place] [phone] Jun, [facility] [address] [facility] [id number], [place] [address] Jun, Environmental and seasonal allergies J30.89 [place] [address] [facility] [id number] [place] [phone] Jun, Environmental and seasonal allergies J30.89 ; Chronic diarrhea K52.9 and Essential hypertension I10 [facility] [address] [facility] [id number] [place] [phone] May, Acute non-recurrent sinusitis, unspecified location J01.90 ; Essential hypertension I10 ; Sleep disturbance G47.9 and Tobacco abuse Z72.0 [facility] [address] [id number] [place] [address] Apr Acute seasonal allergic rhinitis, unspecified trigger J30.2 [facility] [address] [id number] [place] [address] Apr Acute nasopharyngitis J00 and Essential hypertension I10 [facility] [address] [id number] [place] [address] Mar Essential hypertension I10 and Acute seasonal allergic rhinitis, unspecified trigger J30.2 [facility] [address] [id number] [place] [address] Jan Essential hypertension I10 ; Moderate episode of recurrent major depressive disorder F33.1 and Pain in right leg M79.604 [facility] [id number] [place] [address] December Acute nasopharyngitis J00 IMMUNIZATIONS No Known Immunizations SOCIAL HISTORY Never Assessed REASON FOR VISIT Hypertension follow up, getting dizzy spells, still having cough, congestion was given steriods last time. Jorge Alberto butler PLAN OF CARE Activity Details Follow Up prn Reason: VITAL SIGNS Height 59 in 2017-04-20 Weight 128.1 lbs 2017-04-20 Temperature 97.6 degrees Fahrenheit 2017-04-20 Heart Rate 84 bpm 2017-04-20 Respiratory Rate 19 2017-04-20 BMI 25.87 kg/m2 2017-04-20 Blood pressure systolic 120 mmHg 2017-04-20 Blood pressure diastolic 76 mmHg 2017-04-20 MEDICATIONS Medication Instructions Dosage Frequency Start Date End Date Duration Status Lisinopril 20 mg Orally Once a day 1 tablet 24h Mar, Active PredniSONE 20 mg Orally Once a day 2 tablets 24h December, 05 days Active Lexapro 10 mg Orally Once a day 1 tablet 24h 20 Jan, 2017 30 day(s) Active Zyrtec-D Allergy & Congestion 5-120 MG Orally Twice a day 1 tablet 12h 14 Apr, 2017 Apr, 14 days Active RESULTS No Results PROCEDURES No Known procedures INSTRUCTIONS MEDICATIONS ADMINISTERED No Known Medications MEDICAL (GENERAL) HISTORY Type Description Date Medical History hypertension Medical History seasonal allergies Medical History depression Medical History IBS Surgical History Breast implants Surgical History tubal ligation Hospitalization History child
--- OUTSIDE RECORDS SUMMARY | 2018-06-12 13:44 | XMS REPORT ---
Author Author SANDIDUSTYT [facility] Address [address] [place] [address] Care Team Providers Care Furniture And Bedding Inspector Name Role Phone JEAN MARIE JUNIOR Unavailable PROBLEMS Type Condition ICD9-CM Code EDA72-TL Code Onset Dates Condition Status SNOMED Code Problem Environmental and seasonal allergies J30.89 Active 499502324 Problem Chronic diarrhea K52.9 Active 080951469 Problem Moderate episode of recurrent major depressive disorder F33.1 Active 277700229 Problem Sleep disturbance G47.9 Active 80964777 Problem Essential hypertension I10 Active 41079210 ALLERGIES No Known Allergies ENCOUNTERS Encounter Location Date Diagnosis [facility] Gisel0 [facility] [id number], [place] [phone] Jan, [address] [id number], [place] [phone] Nov, Dental examination Z01.[address] [id number] Oct, Essential hypertension I10 ; Sleep disturbance G47.9 and Moderate episode of recurrent major depressive disorder F33.1 [facility] [address] [id number] [place] [address] Sep Essential hypertension I10 [facility] [address] [id number] [place] [address] Jul Screening breast examination Z12.31 [place] [id number] [id number] Jun, [address] [place] [id number] Jun, [facility] [address] [place] [id number], [place] [address] Jun, Environmental and seasonal allergies J30.89 [facility] [address] [facility] [id number] [place] [phone] Jun, Environmental and seasonal allergies J30.89 ; Chronic diarrhea K52.9 and Essential hypertension I10 [facility] [address] [facility] [id number] [place] [phone] May, Acute non-recurrent sinusitis, unspecified location J01.90 ; Essential hypertension I10 ; Sleep disturbance G47.9 and Tobacco abuse Z72.0 [facility] [address] [id number] [place] [address] Apr Acute seasonal allergic rhinitis, unspecified trigger J30.2 [facility] [address] [id number] [place] [address] 14 Apr Acute nasopharyngitis J00 and Essential hypertension I10 [facility] [address] [id number] [place] [address] Mar Essential hypertension I10 and Acute seasonal allergic rhinitis, unspecified trigger J30.2 [facility] [address] [id number] [place] [address] Jan Essential hypertension I10 ; Moderate episode of recurrent major depressive disorder F33.1 and Pain in right leg M79.604 [facility] [address] [id number] [place] [address] December Acute nasopharyngitis J00 IMMUNIZATIONS No Known Immunizations SOCIAL HISTORY Never Assessed REASON FOR VISIT Pt c/o cough/ itchy throat/drainage. Coughing is worse at night. Started 3 months ago after she start lisinopril [facility] JUAN PLAN OF CARE Activity Details Follow Up 4 Weeks Reason: VITAL SIGNS Height 59 in 2017-05-11 Weight 128 lbs 2017-05-11 Temperature 99.1 degrees Fahrenheit 2017-05-11 Heart Rate 76 bpm 2017-05-11 Respiratory Rate 18 2017-05-11 BMI 25.85 kg/m2 2017-05-11 Blood pressure systolic 148 mmHg 2017-05-11 Blood pressure diastolic 80 mmHg 2017-05-11 MEDICATIONS Medication Instructions Dosage Frequency Start Date End Date Duration Status Promethazine-Codeine 6.25-10 MG/5ML Orally every 6 hrs 5 ml as needed 6h May, May, 10 days Active Lisinopril 20 mg Orally Once a day 1 tablet 24h 18 Mar, 2017 Active Lexapro 10 mg Orally Once a day 1 tablet 24h Jan, 30 day(s) Active Augmentin 875-125 MG Orally every 12 hrs 1 tablet 12h May,May 10 day(s) Active PredniSONE 20 mg Orally Once a day 2 tablets 24h May, May, 05 days Active Lisinopril 10 mg Orally Once a day 2 tablets 24h May, 45 days Active RESULTS No Results PROCEDURES No Known procedures INSTRUCTIONS MEDICATIONS ADMINISTERED No Known Medications MEDICAL (GENERAL) HISTORY Type Description Date Medical History hypertension Medical History seasonal allergies Medical History depression Medical History IBS Surgical History Breast implants Surgical History tubal ligation Hospitalization History child
--- OUTSIDE RECORDS SUMMARY | 2018-06-12 13:44 | XMS REPORT ---
Author Author [facility] Address [address] [place] [address] Care Team Providers Care Medical Radiation Tech Name Role Phone LASHAWN KC Unavailable PROBLEMS Type Condition ICD9-CM Code NFV88-XB Code Onset Dates Condition Status SNOMED Code Problem Environmental and seasonal allergies J30.89 Active 809736555 Problem Chronic diarrhea K52.9 Active 970261820 Problem Moderate episode of recurrent major depressive disorder F33.1 Active 218129399 Problem Sleep disturbance G47.9 Active 70521987 Problem Essential hypertension I10 Active 56284498 ALLERGIES No Known Allergies ENCOUNTERS Encounter Location Date Diagnosis [facility] KAROL [address]res0 [facility] [id number][place] [phone] Jan, [facility] [address] [place] [address] [id number], [place] [id number] Nov, Dental examination Z01.20 [facility] [id number], [place] [id number] Oct, Essential hypertension I10 ; Sleep disturbance G47.9 and Moderate episode of recurrent major depressive disorder F33.1 [facility] [address] [id number] [place] [address] Sep Essential hypertension I10 [facility] [address] [id number] [place] [address] Jul Screening breast examination Z12.31 [facility] [address] [facility] [id number], [place] [phone] Jun, [facility] [address] [place] [id number], [place] [phone] Jun, [facility] [address] [facility] [id number], [place] [address] Jun, Environmental and seasonal allergies J30.89 [place] [address] [facility] [id number] [place] [phone] Jun, Environmental and seasonal allergies J30.89 ; Chronic diarrhea K52.9 and Essential hypertension I10 [facility] [address] [facility] [id number] [place] [id number] May, Acute non-recurrent sinusitis, unspecified location J01.90 ; Essential hypertension I10 ; Sleep disturbance G47.9 and Tobacco abuse Z72.0 [facility] Sun Number [address] [id number] [place] [address] Apr Acute seasonal allergic rhinitis, unspecified trigger J30.2 [facility] [address] [id number] [place] [address] Apr Acute nasopharyngitis J00 and Essential hypertension I10 [facility] [address] [id number] [place] [address] Mar Essential hypertension I10 and Acute seasonal allergic rhinitis, unspecified trigger J30.2 [facility] [address] [id number] [place] [address] Jan Essential hypertension I10 ; Moderate episode of recurrent major depressive disorder F33.1 and Pain in right leg M79.604 [facility] [address] [id number] [place] [address] December Acute nasopharyngitis J00 IMMUNIZATIONS Vaccine Route Administration Date Status DEXAMETHASONE 4MG/ML (PER 1 MG) IM Intramuscular May 04, 2017 Administered DEPO MEDROL 40 MG/ML IM Intramuscular May 04, 2017 Administered SOCIAL HISTORY Never Assessed REASON FOR VISIT Sinus pressure/congestion, Both ears itchy. JUAN Garcia PLAN OF CARE Activity Details Follow Up prn Reason: VITAL SIGNS Height 59 in 2017-05-04 Weight 130.0 lbs 2017-05-04 Temperature 97.5 degrees Fahrenheit 2017-05-04 Heart Rate 90 bpm 2017-05-04 Respiratory Rate 18 2017-05-04 Oximetry 99 % 2017-05-04 BMI 26.25 kg/m2 2017-05-04 Blood pressure systolic 120 mmHg 2017-05-04 Blood pressure diastolic 72 mmHg 2017-05-04 MEDICATIONS Medication Instructions Dosage Frequency Start Date End Date Duration Status Lexapro 10 mg Orally Once a day 1 tablet 24h 20 Jan, 2017 30 day(s) Active Lisinopril 20 mg Orally Once a day 1 tablet 24h 18 Mar, 2017 Active Zyrtec-D Allergy & Congestion 5-120 MG Orally Twice a day 1 tablet 12h 14 Apr, 2017 Apr, 14 days Active RESULTS No Results PROCEDURES Procedure Date Ordered Result Body Site MEASURE BLOOD OXYGEN LEVEL May 04, 2017 THER/PROPH/DIAG INJ, SC/IM May 04, 2017 DEPO MEDROL 40 MG/ML May 04, 2017 DEXAMETHASONE 4MG/ML (PER 1 MG) May 04, 2017 INSTRUCTIONS MEDICATIONS ADMINISTERED No Known Medications MEDICAL (GENERAL) HISTORY Type Description Date Medical History hypertension Medical History seasonal allergies Medical History depression Medical History IBS Surgical History Breast implants Surgical History tubal ligation Hospitalization History child
--- NOTE | 2018-06-12 14:12 | Anesthesia-General Post-Op ---
MAC Patient Condition Mental Status/LOC: Same as Preop Cardiovascular: Satisfactory Nausea/Vomiting: Absent Respiratory: Satisfactory Pain: Controlled Complications: Absent Post Op Complications Complications None Follow Up Care/Instructions Patient Instructions None needed. Anesthesiology Discharge Order Discharge Order Patient is doing well, no complaints, stable vital signs, no apparent adverse anesthesia problems. No complications reported per nursing. DAMI PERALTA CRNA Jun 12, 2018 14:12
--- NOTE | 2018-06-12 20:30 | OPERATIVE REPORT ---
DATE OF SERVICE: 06/12/2018 PREOPERATIVE DIAGNOSES: Change in bowel habits, left lower quadrant abdominal pain. POSTOPERATIVE DIAGNOSIS: Diverticulosis of the sigmoid colon polyp. PROCEDURE: Colonoscopy with hot biopsy polypectomy. SURGEON: London Bergman DO ANESTHESIA: Per MDA. ESTIMATED BLOOD LOSS: None. COMPLICATIONS: None. INDICATIONS: The patient is a 48-year-old female with left lower quadrant abdominal pain. Has had a change in bowel habits. She understands risks and benefits of procedure and wished to proceed with procedure. Consent was signed on the chart. DESCRIPTION OF PROCEDURE: The patient was taken to the endoscopy suite, placed in the left lower recumbent position. Timeout was performed. Digital rectal exam was performed. There were no palpable polyps, masses, or ulcerations. Scope was inserted in the rectum and advanced all the way to the cecum with minimal difficulty. Prep was adequate. Scope was then slowly retracted back. There were no polyps, masses, or ulcerations within the cecum, ascending, transverse, descending colon. Within the sigmoid colon, there began to be minimal diverticulosis present. There was also a small sigmoid colon polyp, which hot biopsy polypectomy was performed. Scope was continued to be slowly retracted back to the rectum where it was attempted to be retroflexed, but due to being narrow multiple insertions and retractions were made until the scope was then removed, noting no other pathology. The patient tolerated procedure well without any complications. She was taken to the recovery room in stable condition. RECOMMENDATIONS: The patient will follow up in the office in 2 weeks. She was recommended taking Citrucel on a daily basis until seen in the office. Further recommendations pending biopsy results. The patient will need repeat colonoscopy in 5 years due to the polyp. The patient discharged to home. Job ID: [id number] DocumentID: [id number] Dictated Date: 06/12/2018 11:31:41 Radiagraph Operator Date: 06/12/2018 20:29:32 Dictated By: LONDON BERGMAN DO
== END 2018-06-12 12:24 | disposition home or self-care (01) ==
LOC: ENDO 09:55
PROVIDERS: ATTEND Surgery
DX: D12.5 Benign neoplasm of sigmoid colon (principal); K57.30 Diverticulosis of large intestine without perforation or abscess without bleeding; D64.9 Anemia, unspecified; I10 Essential (primary) hypertension; G47.33 Obstructive sleep apnea (adult) (pediatric); F17.210 Nicotine dependence, cigarettes, uncomplicated; Z79.899 Other long term (current) drug therapy
CPT/HCPCS: 84703; 88305

== ENCOUNTER → 2019-05-17 | Outpatient (CLI) | payer OTHER ==
[~2019-05-17] MED LIST changes: -AMLO5TAB7 PO; +AMLO5TAB9 PO
--- NOTE | 2019-05-17 11:14 | Diagnostic Imaging Report ---
INDICATION: Routine screening. No prior mammograms are available for comparison. This is a baseline study. 2-D and 3-D bilateral screening mammography was performed with cad. There are bilateral breast implants. Implant contours appear to be fairly smooth. Mild fibroglandular tissue is seen bilaterally. No mass or malignant appearing microcalcifications are identified. There are benign calcifications present. The axillae are unremarkable. IMPRESSION: BI-RADS Category 2 No mammographic features suspicious for malignancy are identified. ACR BI-RADS Category 2: Benign findings. Result letter will be mailed to the patient. Note: At least 10% of breast cancer is not imaged by mammography. Dictated by: Dictated on workstation # [id number]
== END ==
LOC: RAD 08:49
PROVIDERS: ATTEND Family Medicine
DX: Z12.31 Encounter for screening mammogram for malignant neoplasm of breast (principal)
CPT/HCPCS: 77067